=== PATIENT | female | born 1940 | race Caucasian/White ===

== ENCOUNTER 2018-07-27 09:30 | Emergency (ER) | payer OTHER, MEDICARE ==
[~2018-07-27] VITALS: Ht 160 cm; Wt 63.5 kg
[~2018-07-27 09:30] MED LIST: CRESTOR5 M1 PO; LIORESAL 10MG T10 MG PO; MOTRIN 600 MG600 MG PO; NORVASC5 M1 PO; PERCOCET 325 MG1 TA1 PO; PERCOCET 325 MG1 TA2 PO
[2018-07-27 10:10] LABS: ABSOLUTE BASOPHIL COUNT 0 /CUMM (0.0-0.2); ABSOLUTE EOSINOPHIL COUNT 0 /CUMM (0.0-0.7); ABSOLUTE GRANULOCYTE CT 7.9 /CUMM (1.4-6.5); ABSOLUTE LYMPH COUNT 1.7 /CUMM (1.2-3.4); ABSOLUTE MONOCYTE COUNT 0.9 /CUMM (0.10-0.60); BASOPHIL % 0.3 % (0.0-2.0); EOSINOPHIL % 0.4 % (0-5); GRANULOCYTE % 74.8 % (42.2-75.2); HEMATOCRIT 41.4 % (37-47); MEAN CORPUSCULAR HGB 29.9 PG (27.0-31.0); MEAN CORPUSCULAR HGB CONC 33.5 G/DL (33.0-37.0); MEAN CORPUSCULAR VOLUME 89.3 FL (81.0-99.0); MEAN PLATELET VOLUME 7.8 FL (7.4-10.4); PLATELET COUNT 347 /CUMM (130-400); RBC DISTRIBUTION WIDTH 14.1 % (11.5-14.5); RED BLOOD CELL CT 4.64 /CUMM (4.20-5.40); WHITE BLOOD CELL COUNT 10.5 /CUMM (4.8-10.8)
--- NOTE | 2018-07-27 11:13 | ED GENERAL ADULT ---
History of Present Illness General Chief Complaint: Abdominal Pain/Flank Pain Stated Complaint: LOWER ABD PAIN Source: patient Exam Limitations: no limitations Vital Signs & Intake/Output Vital Signs & Intake/Output Vital Signs Date Time Temp Pulse Resp B/P B/P Pulse O2 O2 Flow FiO2 Mean Ox Delivery Rate 07/27 1517 98.7 76 20 125/60 100 Room Air 07/27 1406 97.9 69 16 128/61 96 Room Air 07/27 1140 98.0 81 16 151/68 95 Room Air 07/27 1123 Room Air 07/27 0944 97.3 91 18 120/73 97 Room Air Allergies Coded Allergies: NO KNOWN ALLERGIES (07/26/14) Reconcile Medications Amlodipine Besylate (Norvasc) 5 MG TABLET 1 TAB PO DAILY HEART (Reported) Ciprofloxacin HCl (Cipro) 250 MG TABLET 1 TAB PO BID diverticulitis Metronidazole (Flagyl) 500 MG TABLET 1 TAB PO BID diverticulitis Rosuvastatin Calcium (Crestor) 5 MG TABLET 1 TAB PO Q48 CHOLESTEROL (Reported ) Tramadol HCl 50 MG TABLET 1 TAB PO Q12 pain Triage Note: 77F TO ED FOR LLQ PAIN X2 DAYS, HX DIVERTICULITIS. STARTED MILD, AND WORSENING 10/10 AT THIS TIME AND CONSTANT. UNSURE OF BLACK/BLOODY STOOLS. DENIES FEVERS/CHILLS. LAST COLONSCOPY 3 YEARS AGO WITHOUT SIGNIFICANT FINDINGS. Triage Nurses Notes Reviewed? yes Onset: Gradual Duration: day(s): Timing: recent history HPI: 77 year old female presents to the emergency department for a flare up of her diverticulitis. she denies blood in her stool. Past History Travel History Traveled to [place] past 21 day No Medical History Any Pertinent Medical History? see below for history Neurological: NONE EENT: NONE Cardiovascular: HTN, CHOL Respiratory: NONE Gastrointestinal: diverticulitis Hepatic: NONE Renal: NONE Musculoskeletal: NONE Psychiatric: NONE Endocrine: NONE Blood Disorders: NONE Cancer(s): NONE [employer]/Reproductive: NONE Surgical History Surgical History: non-contributory Psychosocial History What is your primary language Persian Tobacco Use: Never used Family History Hx Contributory? No Review of Systems Review of Systems Constitutional: Reports: see HPI. Denies: fever. EENTM: Reports: no symptoms. Denies: blurred vision, double vision, visual changes. Respiratory: Reports: no symptoms. Denies: cough, short of breath. Cardiovascular: Reports: no symptoms. Denies: chest pain. GI: Reports: see HPI, abdominal pain. Denies: bloody stool. Genitourinary: Reports: no symptoms. Musculoskeletal: Reports: no symptoms. Skin: Reports: no symptoms. Neurological/Psychological: Reports: no symptoms. Hematologic/Endocrine: Reports: no symptoms. Immunologic/Allergic: Reports: no symptoms. All Other Systems: Reviewed and Negative Physical Exam Physical Exam General Appearance: well developed/nourished, alert, awake, anxious Head: atraumatic, normal appearance Eyes: Bilateral: normal appearance, PERRL, EOMI. Ears, Nose, Throat: normal ENT inspection, abnormal Tympanic (R) Neck: normal inspection Respiratory: normal breath sounds, no respiratory distress Cardiovascular: regular rate/rhythm Peripheral Pulses: 4+ radial (R), 4+ radial (L) Gastrointestinal: tenderness, LLQ Back: normal range of motion Extremities: normal inspection Neurologic/Psych: no motor/sensory deficits, awake, alert, oriented x 3 Skin: intact, normal color, warm/dry Core Measures ACS in differential dx? No CVA/TIA Diagnosis: No Sepsis Present: No Sepsis Focused Exam Completed? No Progress Differential Diagnoses I considered the following diagnoses in my evaluation of the patient: [ Diverticulitis, renal colic, appendicitis] Plan of Care: Orders Procedure Date/time Status URINALYSIS 07/27 956 Complete LACTIC ACID 07/27 956 Complete COMPREHENSIVE METABOLIC PANEL 07/27 956 Complete CBC WITHOUT DIFFERENTIAL 07/27 956 Complete Laboratory Tests 07/27/18 1256: Lactic Acid Cancelled 07/27/18 1000: Urine Color YEL, Urine Clarity CLEAR, Urine pH 7.0, Ur Specific Anderson 1.010, Urine Protein NEG, Urine Ketones NEG, Urine Nitrite NEG, Urine Bilirubin NEG, Urine Urobilinogen 0.2, Ur Leukocyte Esterase NEG, Ur Microscopic SEDIMENT EXAMINED, Urine RBC 1-3, Ur Epithelial Cells FEW, Urine Bacteria FEW H, Urine Hemoglobin SMALL H, Urine Glucose NEG 07/27/18 0955: Anion Gap 9, Estimated GFR > 60, BUN/Creatinine Ratio 26.0 H, Glucose 99, Lactic Acid 0.9, Calcium 10.0, Total Bilirubin 0.7, AST 29, ALT 29, Alkaline Phosphatase 80, Total Protein 7.6, Albumin 4.7, Globulin 2.9, Albumin/Globulin Ratio 1.6, CBC w Diff NO MAN DIFF REQ, RBC 4.64, MCV 89.3, MCH 29.9, MCHC 33.5, RDW 14.1, MPV 7.8, Gran % 74.8, Lymphocytes % 16.1 L, Monocytes % 8.4, Eosinophils % 0.4, Basophils % 0.3, Absolute Granulocytes 7.9 H, Absolute Lymphocytes 1.7, Absolute Monocytes 0.9 H, Absolute Eosinophils 0, Absolute Basophils 0 Initial ED EKG: none Departure Departure Disposition: STILL A PATIENT Condition: Stable Clinical Impression Primary Impression: Abdominal pain Secondary Impressions: Diverticulitis Referrals: Raeann Harvey MD (PCP/Family) Departure Forms: Customer Survey General Discharge Information Prescriptions: Current Visit Scripts Ciprofloxacin HCl (Cipro) 1 TAB PO BID #20 TAB Metronidazole (Flagyl) 1 TAB PO BID #20 TAB Tramadol HCl 1 TAB PO Q12 #8 TAB Comments PATIENT: ABEL OCHOA PRESENT AGE: 77 PATIENT ACCOUNT NO: [id number] : 39 LOCATION: [facility] ORDERING PHYSICIAN: Veronica PEREZ SERVICE DATE: 07/27/18 EXAM TYPE: CAT - CT ABD & PELVIS W IV CONTRAST EXAMINATION: CT ABDOMEN AND PELVIS WITH CONTRAST CLINICAL INFORMATION: Left lower quadrant abdominal pain. Assess for diverticulitis, colitis or small bowel obstruction. COMPARISON: CT scan of the pelvis 07/26/2014. TECHNIQUE: Multidetector volumetric imaging was performed of the abdomen and pelvis following IV administration of 95 mL of Optiray 320 intravenous contrast. Sagittal and coronal reformatted images were obtained on the technologist's workstation. DLP: 274.27 mGy-cm FINDINGS: LUNG BASES: There are linear opacities at the bases consistent with atelectasis. LIVER, GALLBLADDER, AND BILIARY TREE: The liver is normal in size and shape. It has mild diffusely decreased attenuation consistent with hepatic steatosis. No focal hepatic lesion or biliary ductal dilatation is present. The gallbladder is unremarkable with no evidence of radiopaque gallstones, gallbladder wall thickening, or obvious pericholecystic inflammatory changes. PANCREAS: Unremarkable. SPLEEN: The spleen is relatively small. ADRENAL GLANDS: The adrenal glands are not enlarged. KIDNEYS AND URETERS: The kidneys are normal in size, shape, and attenuation. There is no hydronephrosis, hydroureter and there are no intrarenal calcifications. A punctate calcification is noted along the lateral aspect of the right kidney toward the upper pole. BLADDER: The urinary bladder is partially distended. GASTROINTESTINAL TRACT: The stomach and loops of small bowel are unremarkable. The appendix is not definitively identified on the current study. There is moderate stool within the large bowel. There is relatively extensive diverticulosis of the sigmoid colon. There is mild thickening of the wall in the sigmoid colon posteriorly, with suggestion of some pericolonic stranding. The findings are consistent with acute diverticulitis. No free air or pericolic fluid collections are demonstrated. There is no evidence of bowel obstruction. ABDOMINAL WALL: No significant hernia is appreciated. LYMPH NODES: There is no pelvic or retroperitoneal lymphadenopathy. There are multiple small mesenteric lymph nodes. VASCULAR: There are atheromatous calcifications of the aorta and its branches. No aneurysms are demonstrated. PELVIC VISCERA: The uterus is retroverted. There are no masses or free fluid in the pelvis. OSSEOUS STRUCTURES: Bone mineralization is diffusely decreased. There are no acute fractures or subluxations. There are multilevel spondylitic changes. IMPRESSION: 1. There is sigmoid diverticulosis with a short segment area of diverticulitis posteriorly. No evidence of pericolonic fluid or free air is noted. 2. No evidence of bowel obstruction is demonstrated. 3. There is hepatic steatosis. DICTATED BY: Semaj Galvan MD DATE/TIME DICTATED:07/27/181402 OCCUPATIONAL REHABILITATION AIDE:JAY JAY DATE/TIME TRANSCRIBED:07/27/181402 CONFIDENTIAL, DO NOT COPY WITHOUT APPROPRIATE AUTHORIZATION. <Electronically signed in Other Vendor System> SIGNED BY: Semaj Galvan MD 07/27/18 1422 Critical Care Note Critical Care Note Critical Care Time: non-applicable
--- NOTE | 2018-07-27 14:22 | CT SCAN REPORT ---
EXAMINATION: CT ABDOMEN AND PELVIS WITH CONTRAST CLINICAL INFORMATION: Left lower quadrant abdominal pain. Assess for diverticulitis, colitis or small bowel obstruction. COMPARISON: CT scan of the pelvis 07/26/2014. TECHNIQUE: Multidetector volumetric imaging was performed of the abdomen and pelvis following IV administration of 95 mL of Optiray 320 intravenous contrast. Sagittal and coronal reformatted images were obtained on the technologist's workstation. DLP: 274.27 mGy-cm FINDINGS: LUNG BASES: There are linear opacities at the bases consistent with atelectasis. LIVER, GALLBLADDER, AND BILIARY TREE: The liver is normal in size and shape. It has mild diffusely decreased attenuation consistent with hepatic steatosis. No focal hepatic lesion or biliary ductal dilatation is present. The gallbladder is unremarkable with no evidence of radiopaque gallstones, gallbladder wall thickening, or obvious pericholecystic inflammatory changes. PANCREAS: Unremarkable. SPLEEN: The spleen is relatively small. ADRENAL GLANDS: The adrenal glands are not enlarged. KIDNEYS AND URETERS: The kidneys are normal in size, shape, and attenuation. There is no hydronephrosis, hydroureter and there are no intrarenal calcifications. A punctate calcification is noted along the lateral aspect of the right kidney toward the upper pole. BLADDER: The urinary bladder is partially distended. GASTROINTESTINAL TRACT: The stomach and loops of small bowel are unremarkable. The appendix is not definitively identified on the current study. There is moderate stool within the large bowel. There is relatively extensive diverticulosis of the sigmoid colon. There is mild thickening of the wall in the sigmoid colon posteriorly, with suggestion of some pericolonic stranding. The findings are consistent with acute diverticulitis. No free air or pericolic fluid collections are demonstrated. There is no evidence of bowel obstruction. ABDOMINAL WALL: No significant hernia is appreciated. LYMPH NODES: There is no pelvic or retroperitoneal lymphadenopathy. There are multiple small mesenteric lymph nodes. VASCULAR: There are atheromatous calcifications of the aorta and its branches. No aneurysms are demonstrated. PELVIC VISCERA: The uterus is retroverted. There are no masses or free fluid in the pelvis. OSSEOUS STRUCTURES: Bone mineralization is diffusely decreased. There are no acute fractures or subluxations. There are multilevel spondylitic changes. IMPRESSION: 1. There is sigmoid diverticulosis with a short segment area of diverticulitis posteriorly. No evidence of pericolonic fluid or free air is noted. 2. No evidence of bowel obstruction is demonstrated. 3. There is hepatic steatosis.
[2018-07-27 15:17] VITALS: BP 125/60
[2018-07-27] MEDS ORDERED: FLAGYL500 MG PO (15:18)
[2018-07-27] MEDS ORDERED: CIPRO250 M1 PO (15:18)
[2018-07-27] MEDS ORDERED: TRAMADOL HCL50 M1 PO (15:18)
== END 2018-07-27 15:19 ==
LOC: ERH 09:30
PROVIDERS: Physician Assistant
DX: K57.92 Diverticulitis of intestine, part unspecified, without perforation or abscess without bleeding (principal); I10 Essential (primary) hypertension
CPT/HCPCS: 74177; 81001; 96374; 96375; J0131